=== PATIENT | female | born 1980 | race African-American/Black ===

== ENCOUNTER 2017-03-11 10:02 | Emergency (ER) | payer OTHER ==
[2017-03-11 10:21] VITALS: BP 147/80; PULSE 76; TEMP 98.1; BMI 37.9
[2017-03-11] MEDS ORDERED: AMOX TR/POT CLAV 875MG/125MG TABLETS (FP) PO ONE (11:39)
[2017-03-11] MEDS ORDERED: KETOROLAC TROMETHAMINE 30 MG/1 ML VIAL IM ONE (11:39)
--- NOTE | 2017-03-11 11:45 | PDOC ---
History of Present Illness - General Chief Complaint: Headache Stated Complaint: HEADACHE Time Seen by Provider: 03/11/17 11:31 History Source: Patient - History of Present Illness Initial Comments: 03/11/17 11:40 36-year-old female complaining of frontal headache 2 days. Patient reports 2 weeks of ongoing nasal congestion that is not relieved with Z-Umair and warm compresses to the face. patient reports pain relief with warm compress to the face. Patient denies fever chills nausea, dizziness, vomiting, abdominal pain. patient s/p eye surgery for retinal detachment on 01/27/2017. blurriness since surgery. no new eye symptoms at this time. Past History - Past Medical History Allergies/Adverse Reactions: Allergies Allergy/AdvReac Type Severity Reaction Status Date / Time meperidine HCl [From Demerol] Allergy Intermediate Low Blood Verified 03/11/17 10:17 Pressure, HALLUCINATIONS kiwi Allergy Mild Hives Verified 03/11/17 10:17 latex Allergy Mild Hives Verified 03/11/17 10:17 metoclopramide HCl Allergy Mild SUICIDAL Verified 03/11/17 10:17 [From Reglan] FEELING [place] Allergy Mild Hives Uncoded 03/11/17 10:17 Home Medications: Ambulatory Orders Insulin Glargine,Hum.rec.anlog [Lantus Solostar PEN -] 40 units SQ DAILY Lisinopril/Hydrochlorothiazide [Lisinopril-Hctz 20-12.5 mg Tab] 1 each PO DAILY 07/20/14 Insulin Glulisine [Apidra Solostar] 0 unit SQ TID PRN 09/28/14 Levothyroxine [Synthroid -] 300 mcg PO DAILY 03/17/16 Lisinopril 10 mg PO DAILY 03/17/16 Amox-Tr/K Cl [Augmentin - 875Mg Tablet] 1 tab PO BID #20 tablet 03/11/17 Fluticasone Prop 0.05% Nasal [Flonase -] 1 - 2 spray NS BID #1 spray.pump Furosemide [Lasix] 20 mg PO ASDIR 03/11/17 Anemia: Yes Asthma: No Cancer: No Cardiac Disorders: No CVA: No COPD: No CHF: No DVT: No Dementia: No Diabetes: Yes GI Disorders: Yes (HX OF H.PYLORI) Disorders: Yes (BLADDER INFECTION) HTN: Yes Hypercholesterolemia: No Liver Disease: No Seizures: No Thyroid Disease: Yes (HYPOTHYROIDISM) - Surgical History Abdominal Surgery: No Appendectomy: No Cardiac Surgery: No Cholecystectomy: No Lung Surgery: No Neurologic Surgery: No Orthopedic Surgery: No - Immunization History Immunization Up to Date: No - Suicide/Smoking/Psychosocial Hx Smoking Status: No Smoking History: Unknown if ever smoked Have you smoked in the past 12 months: No Number of Cigarettes Smoked Daily: 0 Information on smoking cessation initiated: No Hx Alcohol Use: No Drug/Substance Use Hx: No Substance Use Type: None Hx Substance Use Treatment: No Review of Systems - Review of Systems Able to Perform ROS?: Yes Is the patient limited Citizen [place] proficient: No Constitutional: No: Symptoms Reported, See HPI, Chills, Diaphoresis, Fever, Loss of Appetite, Malaise, Night Sweats, Weakness, Weight Stable, Unintentional Wgt. Loss, Unexplained wgt Loss, Other HEENTM: Yes: Other (facial tenderness (maxillary sinus and forehead), EYE blurrine) Neurological: Yes: Headache *Physical Exam - Vital Signs Last Vital Signs Temp Pulse Resp BP Pulse Ox 98.1 F 76 18 147/80 100 03/11/17 10:17 03/11/17 10:17 03/11/17 10:17 03/11/17 10:17 03/11/17 10:17 - Physical Exam General Appearance: Yes: Appropriately Dressed HEENT: positive: Rhinorrhea, Sinus Tenderness (maxillary, frontal ) Neurologic: positive: Fully Oriented, Alert, Normal Mood/Affect, Normal Response Progress Note - Progress Note Progress Note: A: sinusitis P: Augmentin flonase *DC/Admit/Observation/Transfer Diagnosis at time of Disposition: Sinusitis Qualifiers: Sinusitis location: frontal Chronicity: acute Recurrence: non-recurrent Qualified Code(s): J01.10 - Acute frontal sinusitis, unspecified - Discharge Dispostion Disposition: HOME Condition at time of disposition: Good - Prescriptions Prescriptions: Amox-Tr/K Cl [Augmentin - 875Mg Tablet] 1 tab PO BID #20 tablet Fluticasone Prop 0.05% Nasal [Flonase -] 1 - 2 spray NS BID #1 spray.pump - Referrals Referrals: Александр Solis MD [Primary Care Provider] - - Patient Instructions Printed Discharge Instructions: Sinus Headache Additional Instructions: Didn't drink plenty of fluids. Take Tylenol or ibuprofen for pain. Take Flonase 1-2 sprays to both nares twice daily for 3 days only. Take Augmentin as prescribed. Follow-up with your doctor as soon as possible. - Post Discharge Activity Forms/Work/School Notes: Back to Work
[2017-03-11] MEDS ORDERED: AMOX TR/POT CLAV 875MG/125MG TABLETS (FP) ONE (11:49)
[2017-03-11] MEDS ORDERED: KETOROLAC TROMETHAMINE 30 MG/1 ML VIAL ONE (11:49)
== END 2017-03-11 11:57 | disposition home or self-care (01) ==
LOC: JERFT 10:02
PROC: 3E0233Z Introduction of Anti-inflammatory into Muscle, Percutaneous Approach (ICD-10-PCS; principal; 2017-03-11)
DX: J01.10 Acute frontal sinusitis, unspecified (principal)
CPT/HCPCS: 99281-25

== ENCOUNTER 2018-09-12 11:22 | Emergency (ER) | payer OTHER | END 2018-09-12 13:00 | disposition home or self-care (01) | LOC: JERFT 11:22 ==

== ENCOUNTER 2018-11-10 07:07 | Day surgery (SDC) | payer OTHER ==
[2018-11-10 07:41] VITALS: BMI 37.8
[2018-11-10 08:54] VITALS: TEMP 98.8
[2018-11-10 13:36] VITALS: BP 145/80; PULSE 67
--- NOTE | 2018-11-11 18:57 | PATH ---
Surgical Pathology Report Patient Name: KENYA ADHIKARI [facility]. Rec. #: [id number] /Age/Gender: 1980 (Age: 38) / F Account: [id number] Location: [facility]-ENDOSCOPY Taken: 11/10/2018 Received: 11/10/2018 Reported: 11/11/2018 Physicians: Charli Webber D.O. Specimen(s) Received A: ANTRAL EROSIONS B: ANGULARIS AND BODY Clinical History Prior to bariatric surgery Postoperative diagnosis: Gastritis Final Diagnosis A. STOMACH, ANTRAL EROSIONS, BIOPSY: GASTRIC ANTRAL MUCOSA WITH MILD CHRONIC GASTRITIS AND FOCAL EROSION. IMMUNOHISTOCHEMICAL STAIN FOR H. PYLORI IS NEGATIVE. B. STOMACH, ANGULARIS AND BODY, BIOPSY: GASTRIC BODY MUCOSA WITH MILD CHRONIC GASTRITIS. IMMUNOHISTOCHEMICAL STAIN FOR H. PYLORI IS NEGATIVE. Electronically Signed Rahel Mabry M.D. Gross Description A. Received in formalin, labeled "antral erosions biopsy" is a eugene, irregular portion of soft tissue measuring 0.6 cm. in greatest dimension. The specimen is submitted in toto in one cassette. B. Received in formalin, labeled "angularis and body biopsy" are 4 eugene, irregular portions of soft tissue ranging from 0.3-0.5 cm. in greatest dimension. The specimens are submitted in toto in one cassette. 11/10/2018 [facility]11/10/2018
== END 2018-11-10 10:10 | disposition home or self-care (01) ==
LOC: JASU-ENDO 07:07
PROVIDERS: ATTEND Internal Medicine Gastroenterology
PROC: 0DB68ZX Excision of Stomach, Via Natural or Artificial Opening Endoscopic, Diagnostic (ICD-10-PCS; principal; 2018-11-10 08:00)
DX: Z01.818 Encounter for other preprocedural examination (principal); E66.9 Obesity, unspecified; E11.9 Type 2 diabetes mellitus without complications; K29.50 Unspecified chronic gastritis without bleeding; E06.3 Autoimmune thyroiditis; D64.9 Anemia, unspecified; I10 Essential (primary) hypertension; Z79.84 Long term (current) use of oral hypoglycemic drugs; Z98.84 Bariatric surgery status
CPT/HCPCS: 84703; 88305-TC; 88342-TC

== ENCOUNTER 2019-04-13 20:34 | Emergency (ER) | payer OTHER ==
[2019-04-13 20:43] VITALS: BP 159/80; PULSE 66; TEMP 98; BMI 32.8
[2019-04-13] MEDS ORDERED: ACETAMINOPHEN 325 MG TABLET (FP) PO ONE (21:38)
[2019-04-13] MEDS ORDERED: ACETAMINOPHEN 325 MG TABLET (FP) ONE (22:20)
--- NOTE | 2019-04-13 22:35 | PDOC ---
Documentation entered by Cass Rnadolph SCRIBE, acting as scribe for Sterling Degroot MD. Sterling Degroot MD: This documentation has been prepared by the Agustín hannah Xhesika, SCRIBE, under my direction and personally reviewed by me in its entirety. I confirm that the documentation accurately reflects all work, treatment, procedures, and medical decision making performed by me. History of Present Illness - General Chief Complaint: Sore Throat Stated Complaint: SORE THROAT Time Seen by Provider: 04/13/19 21:07 History Source: Patient Exam Limitations: No Limitations - History of Present Illness Initial Comments: 04/13/19 21:43 The patient is a 38 year old female with a significant PMH of HTN, IDDM who presents to the emergency department for sore throat. Pt states she had similar symptoms during the week , associated with a hoarse voice. Pt states when she initially endorsed her symptoms (03/16), she went to Urgent Care and was started on doxycycline, with mild relief of symptoms. However, pt states she has been endorsing a sore throat the past day. The patient denies chest pain, shortness of breath, headache and dizziness. Denies fever, chills, cough, nausea, vomiting, diarrhea and constipation. Denies dysuria, frequency, urgency and hematuria. Allergies: NKDA PCP: Александр Mcclain Is this a multiple visit Asthma Patient?: No Past History - Past Medical History Allergies/Adverse Reactions: Allergies Allergy/AdvReac Type Severity Reaction Status Date / Time meperidine HCl [From Demerol] Allergy Intermediate Low Blood Verified 03/11/17 10:17 Pressure, HALLUCINATIONS kiwi Allergy Mild Hives Verified 03/11/17 10:17 latex Allergy Mild Hives Verified 03/11/17 10:17 metoclopramide HCl Allergy Mild SUICIDAL Verified 03/11/17 10:17 [From Reglan] FEELING [place] Allergy Mild Hives Uncoded 03/11/17 10:17 Home Medications: Ambulatory Orders Lisinopril/Hydrochlorothiazide [Lisinopril-Hctz 20-12.5 mg Tab] 1 each PO DAILY 07/20/14 Levothyroxine [Synthroid -] 300 mcg PO DAILY 03/17/16 Fluticasone Prop 0.05% Nasal [Flonase -] 1 - 2 spray NS BID #1 spray.pump Metoprolol Succinate 25 mg PO DAILY 09/12/18 Ustekinumab [Stelara] 50 mg SQ DAILY 11/10/18 Anemia: Yes Asthma: No Cancer: No Cardiac Disorders: No CVA: No COPD: No CHF: No DVT: No Dementia: No Diabetes: Yes GI Disorders: Yes (HX OF H.PYLORI) Disorders: Yes (BLADDER INFECTION) HTN: Yes Hypercholesterolemia: No Liver Disease: No Seizures: No Thyroid Disease: Yes (HASHIMOTOS HYPOTHYROIDISM) - Surgical History Abdominal Surgery: Yes Appendectomy: No Cardiac Surgery: No Cholecystectomy: No Lung Surgery: No Neurologic Surgery: No Orthopedic Surgery: No - Immunization History Immunization Up to Date: No - Psycho Social/Smoking Cessation Hx Smoking Status: No Smoking History: Never smoked Have you smoked in the past 12 months: No Number of Cigarettes Smoked Daily: 0 Hx Alcohol Use: No Drug/Substance Use Hx: No Substance Use Type: None Hx Substance Use Treatment: No Review of Systems - Review of Systems Able to Perform ROS?: Yes Comments:: 04/13/19 21:45 Constitutional - Pt denies Fever, Chills, weakness, HEENT: denies vision change. + sore throat Respiratory: Denies cough, sob, hemoptysis Cardiac: denies chest pain, palpitations, light headedness, leg swelling Abd/GI: denies abd pain, nausea, vomiting, blood per rectum, melena, diarrhea : denies dysuria, frequency, discharge Musculskelatal - denies back pain, joint swelling skin - denies bruising, erythema, rash neurological: denies headache, numbness, focal weakness, tingling, ataxia, weakness hematologic: denies anemia, easy bruising, easy bleeding *Physical Exam - Vital Signs Last Vital Signs Temp Pulse Resp BP Pulse Ox 98 F 66 18 159/80 100 04/13/19 20:35 04/13/19 20:35 04/13/19 20:35 04/13/19 20:35 04/13/19 20:35 - Physical Exam 04/13/19 21:38 GENERAL: The patient is awake, alert, and fully oriented, Nontoxic - in no acute distress. HEAD: Normocephalic, atraumatic. EYES: extraocular movements intact, sclera anicteric, conjunctiva clear. ENT: Normal voice, Moist mucous membranes, Slightly enlarged tonsils bilaterally with mild erythema without exudate, posterior pharynx is symmetric, No cervical lymphadenopathy NECK: Normal range of motion, supple LUNGS: Breath sounds equal, clear to auscultation bilaterally. No wheezes, no rhonchi, no rales. HEART: Regular rate and rhythm, normal S1 and S2 without murmur, rub or gallop. SKIN: Warm, Dry, normal turgor, Medical Decision Making - Medical Decision Making 04/13/19 21:39 sore throat w/o fever/cough Will send rapid strep, tylenol for pain 04/13/19 22:14 rapid strep neg will dc with supportive care I discussed the physical exam findings, ancillary test results and final diagnoses with the patient. I answered all of the patient's questions. The patient was satisfied with the care received and felt comfortable with the discharge plan and treatment plan. The patient will call their primary care physician within 24 hours to arrange follow-up and will return to the Emergency Department with any new, persistent or worsening symptoms. Discharge - Discharge Information Problems reviewed: Yes Clinical Impression/Diagnosis: Sore throat Condition: Stable Disposition: HOME - Admission No - Follow up/Referral Referrals: Александр Solis MD [Primary Care Provider] - - Patient Discharge Instructions Patient Printed Discharge Instructions: DI for Pharyngitis/Tonsillopharyngitis -- Adult Additional Instructions: Return to the emergency department immediately with ANY new, persistent or worsening symptoms Including fevers, difficulty swallowing or any other complaints symptoms. Take Tylenol as needed for your pain Your rapid strep is negative. The throat culture was sent and the results will be back in 2 days. You MUST call and follow up with your doctor tomorrow for further evaluation of your symptoms. Results were discussed with you. Please make sure your doctor reviews the results of your emergency evaluation. Your Emergency Department visit is not complete without a follow up with your doctor. - Post Discharge Activity
== END 2019-04-13 22:25 | disposition home or self-care (01) ==
LOC: FER 20:34
DX: J02.9 Acute pharyngitis, unspecified (principal); Z88.8 Allergy status to other drugs, medicaments and biological substances; Z91.018 Allergy to other foods; Z91.040 Latex allergy status
CPT/HCPCS: 87070; 87880; 99281-25

== ENCOUNTER 2024-05-27 17:25 | Emergency (ER) | payer OTHER ==
[2024-05-27 17:33] VITALS: BP 151/76; PULSE 74; RESP 18; TEMP 98.6; BMI 28.3
[2024-05-27 18:12] LABS: EPI CELLS 15 /uL (0-25.1); HYALINE CASTS 1 /uL (0-3.1); PH,URINE 5.5 (5.0-8.0); URINE APPEARANCE CLEAR; URINE BACTERIA >9,000 /uL (0-1359); URINE BILIRUBIN NEGATIVE (NEGATIVE); URINE COLOR YELLOW; URINE GLUCOSE (UA) NEGATIVE (NEGATIVE); URINE KETONE NEGATIVE (NEGATIVE); URINE LEUK ESTERASE 1+ (NEGATIVE); URINE NITRITE POSITIVE (NEGATIVE); URINE PROTEIN 2+ (NEGATIVE); URINE RBC 15 /uL (0-23.9); URINE UROBILINOGEN 0.2 mg/dL (0.2-1.0); URINE WBC 324 /uL (0-25.8)
== END 2024-05-27 18:52 | disposition home or self-care (01) ==
LOC: JERFT 17:25
DX: N30.00 Acute cystitis without hematuria (principal); R10.2 Pelvic and perineal pain; R30.0 Dysuria; R39.15 Urgency of urination; R35.0 Frequency of micturition; M54.50 Low back pain, unspecified
CPT/HCPCS: 81003; 87086; 87186; 99283-25